=== PATIENT | male | born 1940 | race Native Hawaiian/Other Pacific Islander ===

== ENCOUNTER 2019-07-30 12:05 | Outpatient (CLI) | payer OTHER | END 2019-07-30 19:20 | disposition home or self-care (01) | LOC: US 12:05 | DX: I10 Essential (primary) hypertension (principal); I73.9 Peripheral vascular disease, unspecified ==

== ENCOUNTER 2019-11-11 11:07 | Outpatient (CLI) | payer OTHER | END 2019-11-11 19:29 | disposition home or self-care (01) | LOC: US 11:07 | DX: I73.89 Other specified peripheral vascular diseases (principal) ==

== ENCOUNTER 2022-09-28 13:24 | Outpatient (CLI) | payer OTHER ==
[2022-09-28 14:08] LABS: POTASSIUM 4.2 mmol/L (3.6-5.2)
== END 2022-09-28 18:59 | disposition home or self-care (01) ==
LOC: LABW 13:24
PROVIDERS: ATTEND Internal Medicine Cardiovascular Disease
DX: R06.02 Shortness of breath (principal); Z79.899 Other long term (current) drug therapy
CPT/HCPCS: 36415; 80048; 83880